=== PATIENT | female | born 1955 | race Caucasian/White ===

== ENCOUNTER → 2016-05-21 | Outpatient (REF) | payer OTHER | LOC: M LAB REF 13:03 | PROVIDERS: ATTEND Internal Medicine | DX: E03.9 Hypothyroidism, unspecified (principal) ==

== ENCOUNTER 2021-03-27 17:46 | Emergency (ER) | payer OTHER ==
[~2021-03-27] VITALS: Ht 172.7 cm; Wt 69.9 kg
[2021-03-27 17:46] VITALS: BP 111/59
[~2021-03-27 17:46] MED LIST: ASPI-255 PO
== END 2021-03-27 19:02 | disposition left against medical advice (07) ==
LOC: M ED 17:46
DX: Z53.21 Procedure and treatment not carried out due to patient leaving prior to being seen by health care provider (principal)

== ENCOUNTER → 2022-02-19 | Outpatient (CLI) | payer MEDICARE | LOC: M RAD 07:37 | PROVIDERS: ATTEND Internal Medicine | DX: Z13.6 Encounter for screening for cardiovascular disorders (principal); Z86.79 Personal history of other diseases of the circulatory system ==

== ENCOUNTER → 2023-10-20 | Outpatient (REF) | payer MEDICARE | LOC: M LAB REF 16:20 → EEVIPCON 16:20 | PROVIDERS: ATTEND Nurse Practitioner Family | DX: L02.811 Cutaneous abscess of head [any part, except face] (principal) ==